=== PATIENT | male | born 1985 | race Caucasian/White ===

== ENCOUNTER → 2017-09-14 | Outpatient (CLI) | payer MEDICARE, OTHER ==
--- NOTE | 2017-09-15 04:45 | MR ---
EXAMINATION TYPE: MR brain wo con DATE OF EXAM: 09/14/2017 COMPARISON: NONE HISTORY: Headaches, Mental status changes Standard multiplanar, multisequence MRI departmental protocol Multiplanar, multisequence images of the brain were acquired. Diffusion weighted imaging was performe d. FINDINGS: The ventricles and sulci appear normal. There is no mass effect nor midline shift. There is no sign of intracranial hemorrhage. There is no evidence of cerebral edema. Corpus callosum appears normal. Brainstem appears normal. Sella turcica appears normal. There is no evidence of orbital mass. IMPRESSION: Normal MR scan of the brain.
== END | disposition home or self-care (01) ==
LOC: RADMRIMAIN 19:09
PROVIDERS: ATTEND Internal Medicine
DX: R51 Headache (principal); R41.82 Altered mental status, unspecified
CPT/HCPCS: 70551

== ENCOUNTER 2018-02-21 14:32 | Inpatient (IN) | payer MEDICARE, MEDICAID ==
--- NOTE | 2018-02-21 15:29 | ED ---
General Adult HPI - General Chief complaint: Psychiatric Symptoms Stated complaint: Mental health, mouse breeder picked up Time Seen by Provider: 02/21/18 14:56 Source: patient, RN notes reviewed Mode of arrival: ambulatory Limitations: no limitations - History of Present Illness Initial comments: Patient is a 32-year-old male presenting for psychiatric evaluation. Patient was seen by a dressage judge and police did pick him up and brought him here to emergency room for a psychiatric evaluation. Patient denies any suicidal, homicidal thoughts or plans. Denies any visual or auditory hallucinations. Patient denies any other physical complaints. Patient denies any recent fever, chills, shortness of breath, chest pain, back pain, abdominal pain, headaches or visual changes, or any other complaints. - Related Data Home Medications Medication Instructions Recorded Confirmed No Known Home Medications 02/21/18 02/21/18 Allergies Allergy/AdvReac Type Severity Reaction Status Date / Time No Known Allergies Allergy Verified 02/21/18 15:25 Review of Systems ROS Statement: Those systems with pertinent positive or pertinent negative responses have been documented in the HPI. ROS Other: All systems not noted in ROS Statement are negative. Past Medical History Past Medical History: No Reported History History of Any Multi-Drug Resistant Organisms: None Reported Past Surgical History: No Surgical Hx Reported Past Psychological History: No Psychological Hx Reported Smoking Status: Current every day smoker Past Alcohol Use History: Occasional Past Drug Use History: Cocaine, Opiates General Exam - General Exam Comments Initial Comments: General: The patient is awake and alert, in no distress, and does not appear acutely ill. Eye: Pupils are equal, round and reactive to light, extra-ocular movements are intact. No nystagmus. There is normal conjunctiva bilaterally. No signs of icterus. Ears, nose, mouth and throat: There are moist mucous membranes and no oral lesions. Neck: The neck is supple, there is no tenderness or JVD. Cardiovascular: There is a regular rate and rhythm. No murmur, rub or gallop is appreciated. Respiratory: Lungs are clear to auscultation, respirations are non-labored, breath sounds are equal. No wheezes, stridor, rales, or rhonchi. Musculoskeletal: Normal ROM, no tenderness. Strength 5/5. Sensation intact. Pulses equal bilaterally 2+. Neurological: A&O x 3. CN II-XII intact, There are no obvious motor or sensory deficits. Coordination appears grossly intact. Speech is normal. Skin: Skin is warm and dry and no rashes or lesions are noted. Psychiatric: Cooperative. Limitations: no limitations Course Vital Signs 02/21/18 14:53 Temperature 97.8 F Pulse Rate 100 Respiratory 18 Rate Blood Pressure 131/88 O2 Sat by Pulse 96 Oximetry Medical Decision Making - Medical Decision Making Patient evaluated here in the emergency room by mental health and they recommended that patient be admitted. Disposition Clinical Impression: Paranoia, Aggressive behavior Disposition: TRANSFER TO PSYCH HOSP/UNIT Condition: Stable Is patient prescribed a controlled substance at d/c from ED?: No
[2018-02-21 17:37] LABS: Amphetamine Screen,Urine Not Detected (NotDetected); Barbiturate Screen,Urine Not Detected (NotDetected); Benzodiazepines Screen,Urine Not Detected (NotDetected); Cocaine Screen,Urine Not Detected (NotDetected); Methadone Screen, Urine Not Detected (NotDetected); Opiate Screen,Urine Not Detected (NotDetected); Oxycodone Screen, Urine Not Detected (NotDetected); Phencyclidine Screen,Urine Not Detected (NotDetected); Tricyclic Antidepressant,Urine Not Detected (NotDetected); Urn Cannabinoid Scrn Not Detected (NotDetected)
[2018-02-21] MEDS ORDERED: ACETAMINOPHEN TAB 325 MG TAB PO PRN (17:49)
[2018-02-21] MEDS ORDERED: MAG HYDROX/AL HYDROX/SIMETH 30 ML CUP PO PRN (17:49)
[2018-02-21] MEDS ORDERED: MAGNESIUM HYDROXIDE 2,400 MG/10 ML CUP PO PRN (17:49)
[2018-02-21] MEDS ORDERED: ZIPRASIDONE 20 MG VIAL IM PRN (17:49)
[2018-02-21] MEDS ORDERED: LORazepam 2 MG/ML INJ IM PRN (17:54)
[2018-02-21] MEDS: NICOTINE 14MG/24HR PATCH TRANSDERM SCH (18:00)
--- NOTE | 2018-02-21 22:56 | P.MDCNMH ---
History of Present Illness H&P Date: 02/21/18 Chief Complaint: psych evaluation 32 year old male with no significant past medical history patient was brought to the emergency room after being petitioned by secretary of police for psych evaluation patient is voicing some paranoid thoughts regarding his family and the secretary of police. but denies any suicidal or homicidal evaluation , denies any auditory or visual hallucination. he currently denies any medical concerns , denies SOB, chest pain, headache, fever , chills, coughing , or focal neurological deficits Review of Systems Pertinent positives as noted in HPI. All other systems were reviewed and are negative Past Medical History Past Medical History: No Reported History History of Any Multi-Drug Resistant Organisms: None Reported Past Surgical History: No Surgical Hx Reported Past Psychological History: No Psychological Hx Reported Smoking Status: Current every day smoker Past Alcohol Use History: Occasional Past Drug Use History: Cocaine, Opiates Medications and Allergies Home Medications Medication Instructions Recorded Confirmed Type No Known Home Medications 02/21/18 02/21/18 History Allergies Allergy/AdvReac Type Severity Reaction Status Date / Time No Known Allergies Allergy Verified 02/21/18 15:25 Physical Exam Vitals: Vital Signs Temp Pulse Pulse Resp BP BP Pulse Ox 02/21/18 18:25 98.9 F 102 H 16 141/76 02/21/18 14:53 97.8 F 100 18 131/88 96 Intake and Output 02/21/18 02/21/18 02/21/18 06:59 14:59 22:59 Other: Weight 81.647 kg 82.645 kg Constitutional: No acute distress, conversant, pleasant Eyes: Anicteric sclerae, moist conjunctiva, no lid-lag Pupils equal round reactive to light ENMT: NC/AT Oropharynx clear, no erythema, exudates Neck: Supple, FROM, no masses, or JVD No carotid bruits No thyromegaly Lungs: Clear to auscultation Clear to percussion Normal respiratory effort, no accessory muscle use Cardiovascular: Heart regular in rate and rhythm, No murmurs, gallops, or rubs No peripheral edema Abdominal: Soft Nontender, no guarding, rebound or rigidity Abdomen moving with respiration Normoactive bowel sounds No hepatomegaly, No splenomegaly No palpable mass No abdominal wall hernia noted Skin: Normal temperature, tone, texture, turgor No induration No subcutaneous nodules No rash, lesions No ulcers Extremities: No digital cyanosis No clubbing Pedal pulses intact and symmetrical Radial pulses intact and symmetrical No calf tenderness Psychiatric: Alert and oriented to person, place and time Pressured speech, paranoid thoughts poor judgment Neuro Muscles Strength 5/5 in all 4 extremities Sensation to light touch grossly present throughout Cranial nerves II-XII grossly intact No focal sensory deficits Lymphatics: no palpable cervical or supraclavicular , or inguinal lymph nodes Cranial Nerve Examination - Cranial Nerves Cranial Nerve II- Optic: Intact Cranial Nerve III- Oculomotor: Intact Cranial Nerve IV- Trochlear: Intact Cranial Nerve V- Trigeminal: Intact Cranial Nerve - Abducens: Intact Cranial Nerve VII- Facial: Intact Cranial Nerve VIII- Auditory: Intact Cranial Nerve IX- Glossopharyngeal: Intact Cranial Nerve X- Vagus: Intact Cranial Nerve XI- Accessory: Intact Cranial Nerve XII- Hypoglossal: Intact Assessment and Plan Assessment: 32 year old male with no significant past medical history , admitted for psych evaluation , medicine consulted for medical evaluation . patient has no medical complaints at this time Plan: Paranoid ideation Psych evaluation Tobacco smoking Counseled to quit smoking Nicotine replacement therapy Patient is ambulatory low risk for DVT Urine drug screen negative Thank you for allowing us to participate in the care of this patient. We will follow peripherally. Do not hesitate to contact us with questions. Someone can be reached from the [facility] hospitalist group at all hours of the day at [phone].
[2018-02-22] MEDS: NICOTINE 14MG/24HR PATCH TRANSDERM SCH (08:05)
[2018-02-22 11:24] LABS: Basophils % (A) 0 %; Eosinophils % (A) 0 %; HCT 46.3 % (39.0-53.0); HGB 15.1 gm/dL (13.0-17.5); Lymphocytes # (A) 2.1 k/uL (1.0-4.8); Lymphocytes % (A) 24 %; MCH 28.1 pg (25.0-35.0); MCHC 32.7 g/dL (31.0-37.0); MCV 85.9 fL (80.0-100.0); Mean Platelet Volume 6.4; Monocytes # (A) 0.6 k/uL (0-1.0); Monocytes % (A) 7 %; Neutrophils # (A) 5.8 k/uL (1.3-7.7); Neutrophils % (A) 65 %; Platelet Count 349 k/uL (150-450); RBC 5.39 m/uL (4.30-5.90); RDW 13.2 % (11.5-15.5); WBC 8.8 k/uL (3.8-10.6)
--- NOTE | 2018-02-22 13:38 | P.HP ---
Psychiatric H&P - . H&P Date: 02/22/18 History & Physical: Allergies Allergy/AdvReac Type Severity Reaction Status Date / Time No Known Allergies Allergy Verified 02/21/18 15:25 Vital Signs Temp 97.9 F 02/22/18 07:02 Pulse 89 02/22/18 07:02 Resp 18 02/22/18 07:02 BP 128/80 02/22/18 07:02 Pulse Ox 96 02/21/18 14:53 Intake & Output 02/21/18 02/22/18 02/22/18 18:59 06:59 18:59 Weight 82.645 kg Laboratory Last Values Urine Opiates Screen Not Detected (NotDetected) 02/21/18 17:10 Ur Oxycodone Screen Not Detected (NotDetected) 02/21/18 17:10 Urine Methadone Screen Not Detected (NotDetected) 02/21/18 17:10 Ur Propoxyphene Screen Not Detected (NotDetected) 02/21/18 17:10 Ur Barbiturates Screen Not Detected (NotDetected) 02/21/18 17:10 U Tricyclic Antidepress Not Detected (NotDetected) 02/21/18 17:10 Ur Phencyclidine Scrn Not Detected (NotDetected) 02/21/18 17:10 Ur Amphetamines Screen Not Detected (NotDetected) 02/21/18 17:10 U Methamphetamines Scrn Not Detected (NotDetected) 02/21/18 17:10 U Benzodiazepines Scrn Not Detected (NotDetected) 02/21/18 17:10 Urine Cocaine Screen Not Detected (NotDetected) 02/21/18 17:10 U Marijuana (THC) Screen Not Detected (NotDetected) 02/21/18 17:10 Assessment and Plan Assessment: HPI: Patient is a 32-year-old male presenting for psychiatric admission.. Patient was seen by a mattress filler and police did pick him up and brought him here to emergency room for a psychiatric evaluation. Patient denies any suicidal, homicidal thoughts or plans. Denies any visual or auditory hallucinations. Patient denies any other physical complaints. Patient denies any recent fever, chills, shortness of breath, chest pain, back pain, abdominal pain, headaches or visual changes, or any other complaints. - Related Data Home Medications Medication Instructions Recorded Confirmed No Known Home Medications 02/21/18 02/21/18 Allergies Allergy/AdvReac Type Severity Reaction Status Date / Time No Known Allergies Allergy Verified 02/21/18 15:25 Past Medical History Past Medical History: No Reported History History of Any Multi-Drug Resistant Organisms: None Reported Past Surgical History: No Surgical Hx Reported Past Psychological History: No Psychological Hx Reported Smoking Status: Current every day smoker Past Alcohol Use History: Occasional Past Drug Use History: Cocaine, Opiates Musculoskeletal Examination - Abnormal/Involuntary Movements: [none] Strength: [greater than antigravity (greater than/equal to 3/5) in all extremities:] Muscle Tone: [no impairment Gait: [grossly normal Station: [grossly normal Mental Status Examination - this 32-year-old single male was brought in by police because of wanting to buy a gun and making threats to his numerous people and multiple complaints. He was told that he cannot return to where he is doing his GED due to no trespassing because he has been belligerent angry irritable and agitated towards people. He bought a high school diploma online and was confronted when he tried to go to college that he never finishes his high school diploma. Worries taking his GED he has been disruptive and argumentative. General Appearance: [bizarre, appears stated age Speech/Language: [spontaneous, rapid, rambled, expressive, loud, does confabulate and has poor understanding of life and how to succeed] Attitude/Behavior: [guarded, irritable Mood: [euphoric, anxious, irritable, angry, fearful] Affect: [labile Orientation: [time, person, place situation] Thought Content: [ delusions of grandeur Risk Factors: [No suicidal (ideations, plan), he has Homicidal (ideations, plan) , other] Perception: [wnl Thought Processes: [ concrete, circumstantial, tangential Concentration/Attention Span: [impaired] [Per observation and interview with the patient] Recent Memory: [impaired] Remote Memory: [wnl] [past events, as related history] Intelligence: [below average] [based on history, based on vocabulary, syntax, grammar, and content] Judgement: [ poor] [per patient's behavior/history of present illness] Insight: [poor] [understanding severity of illness/history of present illness] Admitting Diagnosis: [Bipolar affective disorder acute psychosis] Patient Strengths - Steady employment/financial stability: [x] Housing stability: [x] Patient Limitations: [medication, non-compliance, pathological/unsupported environment, intellectual impairment, legal issues, lack of social supports Initial Plan of Care: [Hamilton is to be admitted involuntary after a petition and first clinical CERT were accomplished and in the chart. I filled out this second clinical CERT today due to his bizarre and delusional thinking with grandiose thoughts and loose associations. He'll be placed on 15 minute watch and usual protocol for the unit. He has when necessary's available to him but will not medicate until he goes to court. He'll be evaluated by medicine psychiatry nursing social work and recreational therapy and disciplinary team Sunday through Sunday for treatment and disposition. There may be legal ramifications well and charges from a college and the [employer] but will further evaluate.] Estimated Length of Stay: [5-7 days] Initial Discharge Plan: [home, [facility], referred to therapist, Prognosis: [ fair] Justification for Inpatient Hospitalization - [Hallucinations, delusions, agitation, anxiety, depression resulting in significant loss of functioning.] [Dangerous to self, others, or property with need for controlled environment.] [Emotional or behavioral conditions and complications requiring 24 hour medical and nursing care.] [Need for special drug therapy, or other therapeutic program requiring continuous hospitalization.] [Failure of social or occupational functioning.] [Inability to meet basic life and health needs.] [Legally mandated admission.] (1) Bipolar 1 disorder Current Visit: Yes Status: Acute Priority: High Code(s): F31.9 - BIPOLAR DISORDER, UNSPECIFIED SNOMED Code(s): 220468010 (2) Delusions Current Visit: Yes Status: Acute Priority: High Code(s): F22 - DELUSIONAL DISORDERS SNOMED Code(s): 6522692 (3) Psychosis Current Visit: Yes Status: Acute Priority: High Code(s): F29 - UNSP PSYCHOSIS NOT DUE TO A SUBSTANCE OR KNOWN PHYSIOL COND SNOMED Code(s): 57983500 Plan: Probate court next week and no psychiatric medications at this time since she is unwilling to do about and will have to await court hearing. Time with Patient: Greater than 30
[2018-02-22 20:49] LABS: Hemoglobin A1C 5.1 % (4.0-6.0)
[2018-02-23] MEDS: NICOTINE 14MG/24HR PATCH TRANSDERM SCH (09:02)
[2018-02-23] MEDS: LORazepam 1 MG TAB PO PRN (18:29)
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
[2018-02-24] MEDS: NICOTINE 14MG/24HR PATCH TRANSDERM SCH (07:46)
[2018-02-24 09:31] LABS: ALT 32 U/L (21-72); AST 21 U/L (17-59); Albumin 4.3 g/dL (3.5-5.0); Alkaline Phosphatase 72 U/L (38-126); Anion Gap 10 mmol/L; Bilirubin, Delta 0.2 mg/dL (0.0-0.2); Bilirubin,Unconjugated 0.7 mg/dL (0.0-1.1); Blood Urea Nitrogen 14 mg/dL (9-20); Calcium 9.7 mg/dL (8.4-10.2); Carbon Dioxide 30 mmol/L (22-30); Chloride 102 mmol/L (98-107); Cholesterol 150 mg/dL (<200); Glucose 103 mg/dL (74-99); HDL Cholesterol 61 mg/dL (40-60); LDL Cholesterol,Calculated 69 mg/dL (0-99); Potassium 4.1 mmol/L (3.5-5.1); Sodium 142 mmol/L (137-145); Total Bilirubin 0.9 mg/dL (0.2-1.3); Total Protein 7.1 g/dL (6.3-8.2); Triglycerides 100 mg/dL (<150)
--- NOTE | 2018-02-24 17:03 | P.PN ---
Progress Note - Text Progress Note Date: 02/24/18 IDENTIFICATION DATA: 32-year-old male petitioned by police as patient was experiencing paranoid ideations. Clinical CERT was completed due to his delusional and illogical thought process. Awaiting results of probate court hearing. There may be legal ramifications well and charges from a college and the [employer] store which will be further evaluated. Intellectual impairment, lack of social support. INTERVAL HISTORY: He continues to report he was brought here for no reason or no fault. He is anxiously waiting to talk to his business lawyer tomorrow. He says he is doing very well. He claims he makes sure he gets good exercise and eat well before going to bed. He claims to have slept very well yesterday. He is seen pacing [address]. He denies current symptoms of depression, jeana or psychosis. MENTAL STATUS EXAMINATION: Appeared stated age. dressed casually.. Fair grooming and hygiene. No abnormal movements noted. mood is reported as well, affect appropriate. speech and thought process were pressured and tangential. denies current hallucinatios. Denies paranoia. is alert and oriented x 4. denies current suicidal or homicidal ideations. insight and judgement are improving. ASSESSMENT AND PLAN: Awaiting probate court hearing. Currently being monitored on PRN medications.
[2018-02-24 19:14] LABS: Appearance,Urine Clear (Clear); Bilirubin,Urine Negative (Negative); Blood,Urine Negative (Negative); Color,Urine Light Yellow; Glucose,Urine (UA) Negative (Negative); Ketones,Urine Negative (Negative); Leukocyte Esterase,Urine Negative (Negative); Nitrite,Urine Negative (Negative); Protein,Urine Negative (Negative); Specific Gravity,Urine 1.007 (1.001-1.035); Urobilinogen,Urine <2.0 mg/dL (<2.0)
[2018-02-25] MEDS: NICOTINE 14MG/24HR PATCH TRANSDERM SCH (08:03)
--- NOTE | 2018-02-25 12:25 | P.PN ---
Subjective Progress Note Date: 02/25/18 Principal diagnosis: Bipolarmania and psychosis He continues to report he was brought here for no reason or no fault. He is anxiously waiting to talk to his director of corporate sales tomorrow. He says he is not doing very well. He claims he makes sure he gets good exercise and eat well before going to bed. He claims to have slept very well yesterday. He is seen pacing [address]. He has symptoms of jeana or psychosis. Objective - Vital Signs Vital signs: Vital Signs Temp 97.6 F 02/25/18 04:36 Pulse 66 02/25/18 04:36 Resp 16 02/25/18 04:36 BP 130/88 02/25/18 04:36 Pulse Ox 95 02/24/18 06:25 Intake & Output 02/24/18 02/25/18 02/25/18 18:59 06:59 18:59 Weight 83.5 kg - Labs CBC & Chem 7: 02/22/18 10:49 02/24/18 08:58 Assessment and Plan Assessment: HPI: Patient is a 32-year-old male presenting for psychiatric admission.. Patient was seen by a metal pickling equipment operator and police did pick him up and brought him here to emergency room for a psychiatric evaluation. Patient denies any suicidal, homicidal thoughts or plans. Denies any visual or auditory hallucinations. Patient denies any other physical complaints. Patient denies any recent fever, chills, shortness of breath, chest pain, back pain, abdominal pain, headaches or visual changes, or any other complaints. - Related Data Home Medications Medication Instructions Recorded Confirmed No Known Home Medications 02/21/18 02/21/18 Allergies Allergy/AdvReac Type Severity Reaction Status Date / Time No Known Allergies Allergy Verified 02/21/18 15:25 Past Medical History Past Medical History: No Reported History History of Any Multi-Drug Resistant Organisms: None Reported Past Surgical History: No Surgical Hx Reported Past Psychological History: No Psychological Hx Reported Smoking Status: Current every day smoker Past Alcohol Use History: Occasional Past Drug Use History: Cocaine, Opiates Musculoskeletal Examination - Abnormal/Involuntary Movements: [none] Strength: [greater than antigravity (greater than/equal to 3/5) in all extremities:] Muscle Tone: [no impairment Gait: [grossly normal Station: [grossly normal Mental Status Examination - this 32-year-old single male was brought in by police because of wanting to buy a gun and making threats to his numerous people and multiple complaints. He was told that he cannot return to where he is doing his GED due to no trespassing because he has been belligerent angry irritable and agitated towards people. He bought a high school diploma online and was confronted when he tried to go to college that he never finishes his high school diploma. Worries taking his GED he has been disruptive and argumentative. General Appearance: [bizarre, appears stated age Speech/Language: [spontaneous, rapid, rambled, expressive, loud, does confabulate and has poor understanding of life and how to succeed] Attitude/Behavior: [guarded, irritable Mood: [euphoric, anxious, irritable, angry, fearful] Affect: [labile Orientation: [time, person, place situation] Thought Content: [ delusions of grandeur Risk Factors: [No suicidal (ideations, plan), he has Homicidal (ideations, plan) , other] Perception: [wnl Thought Processes: [ concrete, circumstantial, tangential Concentration/Attention Span: [impaired] [Per observation and interview with the patient] Recent Memory: [impaired] Remote Memory: [wnl] [past events, as related history] Intelligence: [below average] [based on history, based on vocabulary, syntax, grammar, and content] Judgement: [ poor] [per patient's behavior/history of present illness] Insight: [poor] [understanding severity of illness/history of present illness] Admitting Diagnosis: [Bipolar affective disorder acute psychosis] Patient Strengths - Steady employment/financial stability: [x] Housing stability: [x] Patient Limitations: [medication, non-compliance, pathological/unsupported environment, intellectual impairment, legal issues, lack of social supports Initial Plan of Care: [Hamilton is to be admitted involuntary after a petition and first clinical CERT were accomplished and in the chart. I filled out this second clinical CERT today due to his bizarre and delusional thinking with grandiose thoughts and loose associations. He'll be placed on 15 minute watch and usual protocol for the unit. He has when necessary's available to him but will not medicate until he goes to court. He'll be evaluated by medicine psychiatry nursing social work and recreational therapy and disciplinary team Sunday through Sunday for treatment and disposition. There may be legal ramifications well and charges from a college and the [employer] but will further evaluate. If he agrees to an deferral I discussed with him in detail that he still court ordered and he has to take the medications. He thought I could just writing scripts and he could leave. I told him that was not an option he has to stay here until he is told he can be discharged. He appeared to be okay with that but judging from previous episodes of him, he will need the probate court order for continued treatment for her as I think he is at risk if he is not on medications.] Estimated Length of Stay: [5-7 days] Initial Discharge Plan: [home, [facility], referred to therapist, Prognosis: [ fair] Justification for Inpatient Hospitalization - [Hallucinations, delusions, agitation, anxiety, depression resulting in significant loss of functioning.] [Dangerous to self, others, or property with need for controlled environment.] [Emotional or behavioral conditions and complications requiring 24 hour medical and nursing care.] [Need for special drug therapy, or other therapeutic program requiring continuous hospitalization.] [Failure of social or occupational functioning.] [Inability to meet basic life and health needs.] [Legally mandated admission.] (1) Bipolar 1 disorder Current Visit: Yes Status: Acute Priority: High Code(s): F31.9 - BIPOLAR DISORDER, UNSPECIFIED SNOMED Code(s): 718909469 (2) Delusions Current Visit: Yes Status: Acute Priority: High Code(s): F22 - DELUSIONAL DISORDERS SNOMED Code(s): 9200192 (3) Psychosis Current Visit: Yes Status: Acute Priority: High Code(s): F29 - UNSP PSYCHOSIS NOT DUE TO A SUBSTANCE OR KNOWN PHYSIOL COND SNOMED Code(s): 74565493 Plan: Probate court this week and no psychiatric medications at this time since she is unwilling to do about and will have to await court hearing. He did consider medications today but I will wait until his deferral. Time with Patient: Less than 30
[2018-02-25] MEDS ORDERED: PALIPERIDONE 3 MG TAB.ER.24 PO SCH (21:00)
[2018-02-25] MEDS ORDERED: lamoTRIgine 25 MG TAB PO SCH (21:00)
[2018-02-26] MEDS: NICOTINE 14MG/24HR PATCH TRANSDERM SCH (13:45)
--- NOTE | 2018-02-26 15:09 | P.PN ---
Subjective Progress Note Date: 02/26/18 Principal diagnosis: Bipolarmania and psychosis He continues to report he was brought here for no reason or no fault. He is anxiously waiting to talk to his media professional tomorrow. He says he is not doing very well. He claims he makes sure he gets good exercise and eat well before going to bed. He claims to have slept very well yesterday. He is seen pacing [address]. He has symptoms of jeana or psychosis. Objective - Vital Signs Vital signs: Vital Signs Temp 98.0 F 02/26/18 04:50 Pulse 83 02/26/18 04:50 Resp 16 02/26/18 04:50 BP 137/86 02/26/18 04:50 Pulse Ox 95 02/24/18 06:25 - Labs CBC & Chem 7: 02/22/18 10:49 02/24/18 08:58 Assessment and Plan Assessment: HPI: Patient is a 32-year-old male presenting for psychiatric admission.. Patient was seen by a instructional coach and police did pick him up and brought him here to emergency room for a psychiatric evaluation. Patient denies any suicidal, homicidal thoughts or plans. Denies any visual or auditory hallucinations. Patient denies any other physical complaints. Patient denies any recent fever, chills, shortness of breath, chest pain, back pain, abdominal pain, headaches or visual changes, or any other complaints. - Related Data Home Medications Medication Instructions Recorded Confirmed No Known Home Medications 02/21/18 02/21/18 Allergies Allergy/AdvReac Type Severity Reaction Status Date / Time No Known Allergies Allergy Verified 02/21/18 15:25 Past Medical History Past Medical History: No Reported History History of Any Multi-Drug Resistant Organisms: None Reported Past Surgical History: No Surgical Hx Reported Past Psychological History: No Psychological Hx Reported Smoking Status: Current every day smoker Past Alcohol Use History: Occasional Past Drug Use History: Cocaine, Opiates Musculoskeletal Examination - Abnormal/Involuntary Movements: [none] Strength: [greater than antigravity (greater than/equal to 3/5) in all extremities:] Muscle Tone: [no impairment Gait: [grossly normal Station: [grossly normal Mental Status Examination - this 32-year-old single male was brought in by police because of wanting to buy a gun and making threats to his numerous people and multiple complaints. He was told that he cannot return to where he is doing his GED due to no trespassing because he has been belligerent angry irritable and agitated towards people. He bought a high school diploma online and was confronted when he tried to go to college that he never finishes his high school diploma. Worries taking his GED he has been disruptive and argumentative. General Appearance: [bizarre, appears stated age Speech/Language: [spontaneous, rapid, rambled, expressive, loud, does confabulate and has poor understanding of life and how to succeed] Attitude/Behavior: [guarded, irritable Mood: [euphoric, anxious, irritable, angry, fearful] Affect: [labile Orientation: [time, person, place situation] Thought Content: [ delusions of grandeur Risk Factors: [No suicidal (ideations, plan), he has Homicidal (ideations, plan) , other] Perception: [wnl Thought Processes: [ concrete, circumstantial, tangential Concentration/Attention Span: [impaired] [Per observation and interview with the patient] Recent Memory: [impaired] Remote Memory: [wnl] [past events, as related history] Intelligence: [below average] [based on history, based on vocabulary, syntax, grammar, and content] Judgement: [ poor] [per patient's behavior/history of present illness] Insight: [poor] [understanding severity of illness/history of present illness] Admitting Diagnosis: [Bipolar affective disorder acute psychosis] Patient Strengths - Steady employment/financial stability: [x] Housing stability: [x] Patient Limitations: [medication, non-compliance, pathological/unsupported environment, intellectual impairment, legal issues, lack of social supports Initial Plan of Care: [Hamilton is to be admitted involuntary after a petition and first clinical CERT were accomplished and in the chart. I filled out this second clinical CERT today due to his bizarre and delusional thinking with grandiose thoughts and loose associations. He'll be placed on 15 minute watch and usual protocol for the unit. He has when necessary's available to him but will not medicate until he goes to court. He'll be evaluated by medicine psychiatry nursing social work and recreational therapy and disciplinary team Sunday through Sunday for treatment and disposition. There may be legal ramifications well and charges from a college and the [employer] but will further evaluate. If he agrees to an deferral I discussed with him in detail that he still court ordered and he has to take the medications. He thought I could just writing scripts and he could leave. I told him that was not an option he has to stay here until he is told he can be discharged. He appeared to be okay with that but judging from previous episodes of him, he will need the probate court order for continued treatment for her as I think he is at risk if he is not on medications.] Estimated Length of Stay: [4 days] Initial Discharge Plan: [[place], [facility], referred to therapist, Prognosis: [ fair] Justification for Inpatient Hospitalization - [Hallucinations, delusions, agitation, anxiety, depression resulting in significant loss of functioning.] [Dangerous to self, others, or property with need for controlled environment.] [Emotional or behavioral conditions and complications requiring 24 hour medical and nursing care.] [Need for special drug therapy, or other therapeutic program requiring continuous hospitalization.] [Failure of social or occupational functioning.] [Inability to meet basic life and health needs.] [Legally mandated admission.] (1) Bipolar 1 disorder Current Visit: Yes Status: Acute Priority: High Code(s): F31.9 - BIPOLAR DISORDER, UNSPECIFIED SNOMED Code(s): 752764593 (2) Delusions Current Visit: Yes Status: Acute Priority: High Code(s): F22 - DELUSIONAL DISORDERS SNOMED Code(s): 2604486 (3) Psychosis Current Visit: Yes Status: Acute Priority: High Code(s): F29 - UNSP PSYCHOSIS NOT DUE TO A SUBSTANCE OR KNOWN PHYSIOL COND SNOMED Code(s): 02015599 Plan: Probate court this week and no psychiatric medications at this time since he is unwilling to do about and will have to await court hearing. He did consider medications today but I will wait until his deferral.Had deferred and now taking lamictal 50 mg po qhs; invega 6 mg po qhs Time with Patient: Less than 30
[2018-02-26] MEDS ORDERED: PALIPERIDONE 6 MG TAB.ER.24 PO SCH (21:00)
[2018-02-26] MEDS ORDERED: lamoTRIgine 25 MG TAB PO SCH (21:00)
[2018-02-27] MEDS: NICOTINE 14MG/24HR PATCH TRANSDERM SCH (08:22)
--- NOTE | 2018-02-27 12:04 | P.PN ---
Subjective Progress Note Date: 02/27/18 Principal diagnosis: Bipolarmania and psychosis He continues to report he was brought here for no reason or no fault. He is anxiously waiting to talk to his stave planer tender tomorrow. He says he is not doing very well. He claims he makes sure he gets good exercise and eat well before going to bed. He claims to have slept very well yesterday. He is seen pacing [address]. He has symptoms of jeana or psychosis. He presents today still manic pressured speech and wants to control his own medicines. Had to be redirected 3 times during session Objective - Vital Signs Vital signs: Vital Signs Temp 98.1 F 02/27/18 06:04 Pulse 113 H 02/27/18 06:04 Resp 16 02/27/18 06:04 BP 134/90 02/27/18 06:04 Pulse Ox 95 02/24/18 06:25 - Labs CBC & Chem 7: 02/22/18 10:49 02/24/18 08:58 Assessment and Plan Assessment: HPI: Patient is a 32-year-old male presenting for psychiatric admission.. Patient was seen by a paddock judge and police did pick him up and brought him here to emergency room for a psychiatric evaluation. Patient denies any suicidal, homicidal thoughts or plans. Denies any visual or auditory hallucinations. Patient denies any other physical complaints. Patient denies any recent fever, chills, shortness of breath, chest pain, back pain, abdominal pain, headaches or visual changes, or any other complaints. - Related Data Home Medications Medication Instructions Recorded Confirmed No Known Home Medications 02/21/18 02/21/18 Allergies Allergy/AdvReac Type Severity Reaction Status Date / Time No Known Allergies Allergy Verified 02/21/18 15:25 Past Medical History Past Medical History: No Reported History History of Any Multi-Drug Resistant Organisms: None Reported Past Surgical History: No Surgical Hx Reported Past Psychological History: No Psychological Hx Reported Smoking Status: Current every day smoker Past Alcohol Use History: Occasional Past Drug Use History: Cocaine, Opiates Musculoskeletal Examination - Abnormal/Involuntary Movements: [none] Strength: [greater than antigravity (greater than/equal to 3/5) in all extremities:] Muscle Tone: [no impairment Gait: [grossly normal Station: [grossly normal Mental Status Examination - this 32-year-old single male was brought in by police because of wanting to buy a gun and making threats to his numerous people and multiple complaints. He was told that he cannot return to where he is doing his GED due to no trespassing because he has been belligerent angry irritable and agitated towards people. He bought a high school diploma online and was confronted when he tried to go to college that he never finishes his high school diploma. Worries taking his GED he has been disruptive and argumentative. General Appearance: [bizarre, appears stated age Speech/Language: [spontaneous, rapid, rambled, expressive, loud, does confabulate and has poor understanding of life and how to succeed] Attitude/Behavior: [guarded, irritable Mood: [euphoric, anxious, irritable, angry, fearful] Affect: [labile Orientation: [time, person, place situation] Thought Content: [ delusions of grandeur Risk Factors: [No suicidal (ideations, plan), he has Homicidal (ideations, plan) , other] Perception: [wnl Thought Processes: [ concrete, circumstantial, tangential Concentration/Attention Span: [impaired] [Per observation and interview with the patient] Recent Memory: [impaired] Remote Memory: [wnl] [past events, as related history] Intelligence: [below average] [based on history, based on vocabulary, syntax, grammar, and content] Judgement: [ poor] [per patient's behavior/history of present illness] Insight: [poor] [understanding severity of illness/history of present illness] Admitting Diagnosis: [Bipolar affective disorder acute psychosis] Patient Strengths - Steady employment/financial stability: [x] Housing stability: [x] Patient Limitations: [medication, non-compliance, pathological/unsupported environment, intellectual impairment, legal issues, lack of social supports Initial Plan of Care: [Hamilton is to be admitted involuntary after a petition and first clinical CERT were accomplished and in the chart. I filled out this second clinical CERT today due to his bizarre and delusional thinking with grandiose thoughts and loose associations. He'll be placed on 15 minute watch and usual protocol for the unit. He'll be evaluated by medicine psychiatry nursing social work and recreational therapy and disciplinary team Sunday through Sunday for treatment and disposition. There may be legal ramifications well and charges from a college and the [employer] but will further evaluate. He has since deferred for treatment and was discovered that he was sent to February 2017 with same symptoms and was on Invega 234 mg IM If he agrees to an deferral I discussed with him in detail that he still court ordered and he has to take the medications. He thought I could just writing scripts and he could leave. I told him that was not an option he has to stay here until he is told he can be discharged. He appeared to be okay with that but judging from previous episodes of him, he will need the probate court order for continued treatment for her as I think he is at risk if he is not on medications.] Estimated Length of Stay: [4 days] Initial Discharge Plan: [[place], [facility], referred to therapist Prognosis: [ fair] Justification for Inpatient Hospitalization - [Hallucinations, delusions, agitation, anxiety, depression resulting in significant loss of functioning.] [Dangerous to self, others, or property with need for controlled environment.] [Emotional or behavioral conditions and complications requiring 24 hour medical and nursing care.] [Need for special drug therapy, or other therapeutic program requiring continuous hospitalization.] [Failure of social or occupational functioning.] [Inability to meet basic life and health needs.] [Legally mandated admission.] (1) Bipolar 1 disorder Current Visit: Yes Status: Acute Priority: High Code(s): F31.9 - BIPOLAR DISORDER, UNSPECIFIED SNOMED Code(s): 204770782 (2) Delusions Current Visit: Yes Status: Acute Priority: High Code(s): F22 - DELUSIONAL DISORDERS SNOMED Code(s): 7646919 (3) Psychosis Current Visit: Yes Status: Acute Priority: High Code(s): F29 - UNSP PSYCHOSIS NOT DUE TO A SUBSTANCE OR KNOWN PHYSIOL COND SNOMED Code(s): 01528500 Plan: He did consider medications today but he wants to manipulate 30 dose and I told him I'm not willing for him to be in charge of his medications. He did deferral with a court-appointed sweet dough mixer.Had deferred and now taking lamictal 75 mg po qhs; invega 9 mg po qhs Time with Patient: Less than 30
[2018-02-27] MEDS: PALIPERIDONE 3 MG TAB.ER.24 PO SCH (20:28)
[2018-02-27] MEDS ORDERED: lamoTRIgine 25 MG TAB PO SCH (21:00)
[2018-02-28] MEDS: LORazepam 1 MG TAB PO PRN ×3 (03:53→17:51)
[2018-02-28] MEDS: NICOTINE 14MG/24HR PATCH TRANSDERM SCH (08:14)
--- NOTE | 2018-02-28 13:52 | P.PN ---
Subjective Progress Note Date: 02/28/18 Principal diagnosis: Bipolarmania and psychosis He continues to report he was brought here for no reason or no fault. He says he is not doing very well. He claims he makes sure he gets good exercise and eat well before going to bed. He claims to have slept very well yesterday. He is seen pacing [place]. He has symptoms of jeana or psychosis. He presents today still manic pressured speech and wants to control his own medicines. Had to be redirected 2 times during session Objective - Vital Signs Vital signs: Vital Signs Temp 98.1 F 02/27/18 06:04 Pulse 103 H 02/28/18 03:54 Resp 16 02/27/18 06:04 BP 133/87 02/28/18 03:54 Pulse Ox 95 02/24/18 06:25 - Labs CBC & Chem 7: 02/22/18 10:49 02/24/18 08:58 Assessment and Plan Assessment: HPI: Patient is a 32-year-old male presenting for psychiatric admission.. Patient was seen by a port traffic manager and police did pick him up and brought him here to emergency room for a psychiatric evaluation. Patient denies any suicidal, homicidal thoughts or plans. Denies any visual or auditory hallucinations. Patient denies any other physical complaints. Patient denies any recent fever, chills, shortness of breath, chest pain, back pain, abdominal pain, headaches or visual changes, or any other complaints. - Related Data Home Medications Medication Instructions Recorded Confirmed No Known Home Medications 02/21/18 02/21/18 Allergies Allergy/AdvReac Type Severity Reaction Status Date / Time No Known Allergies Allergy Verified 02/21/18 15:25 Past Medical History Past Medical History: No Reported History History of Any Multi-Drug Resistant Organisms: None Reported Past Surgical History: No Surgical Hx Reported Past Psychological History: No Psychological Hx Reported Smoking Status: Current every day smoker Past Alcohol Use History: Occasional Past Drug Use History: Cocaine, Opiates Musculoskeletal Examination - Abnormal/Involuntary Movements: [none] Strength: [greater than antigravity (greater than/equal to 3/5) in all extremities:] Muscle Tone: [no impairment Gait: [grossly normal Station: [grossly normal Mental Status Examination - this 32-year-old single male was brought in by police because of wanting to buy a gun and making threats to his numerous people and multiple complaints. He was told that he cannot return to where he is doing his GED due to no trespassing because he has been belligerent angry irritable and agitated towards people. He bought a high school diploma online and was confronted when he tried to go to college that he never finishes his high school diploma. Worries taking his GED he has been disruptive and argumentative. General Appearance: [bizarre, appears stated age Speech/Language: [spontaneous, rapid, rambled, expressive, loud, does confabulate and has poor understanding of life and how to succeed] Attitude/Behavior: [guarded, irritable Mood: [euphoric, anxious, irritable, angry, fearful] Affect: [labile Orientation: [time, person, place situation] Thought Content: [ delusions of grandeur Risk Factors: [No suicidal (ideations, plan), he has Homicidal (ideations, plan) , other] Perception: [wnl Thought Processes: [ concrete, circumstantial, tangential Concentration/Attention Span: [impaired] [Per observation and interview with the patient] Recent Memory: [impaired] Remote Memory: [wnl] [past events, as related history] Intelligence: [below average] [based on history, based on vocabulary, syntax, grammar, and content] Judgement: [ poor] [per patient's behavior/history of present illness] Insight: [poor] [understanding severity of illness/history of present illness] Admitting Diagnosis: [Bipolar affective disorder acute psychosis] Patient Strengths - Steady employment/financial stability: [x] Housing stability: [x] Patient Limitations: [medication, non-compliance, pathological/unsupported environment, intellectual impairment, legal issues, lack of social supports Initial Plan of Care: [Hamilton is to be admitted involuntary after a petition and first clinical CERT were accomplished and in the chart. I filled out this second clinical CERT today due to his bizarre and delusional thinking with grandiose thoughts and loose associations. He'll be placed on 15 minute watch and usual protocol for the unit. He'll be evaluated by medicine psychiatry nursing social work and recreational therapy and disciplinary team Sunday through Sunday for treatment and disposition. There may be legal ramifications well and charges from a college and the [employer] but will further evaluate. He has since deferred for treatment and was discovered that he was sent to [facility] February 2017 with same symptoms and was on Invega 234 mg IM If he agrees to an deferral I discussed with him in detail that he still court ordered and he has to take the medications. He thought I could just writing scripts and he could leave. I told him that was not an option he has to stay here until he is told he can be discharged. He appeared to be okay with that but judging from previous episodes of him, he will need the probate court order for continued treatment for her as I think he is at risk if he is not on medications.] Estimated Length of Stay: [3 days] Initial Discharge Plan: [[place], [facility] [address], referred to therapist Prognosis: [ fair] Justification for Inpatient Hospitalization - [Hallucinations, delusions, agitation, anxiety, depression resulting in significant loss of functioning.] [Dangerous to self, others, or property with need for controlled environment.] [Emotional or behavioral conditions and complications requiring 24 hour medical and nursing care.] [Need for special drug therapy, or other therapeutic program requiring continuous hospitalization.] [Failure of social or occupational functioning.] [Inability to meet basic life and health needs.] [Legally mandated admission.] (1) Bipolar 1 disorder Current Visit: Yes Status: Acute Priority: High Code(s): F31.9 - BIPOLAR DISORDER, UNSPECIFIED SNOMED Code(s): 125268436 (2) Delusions Current Visit: Yes Status: Acute Priority: High Code(s): F22 - DELUSIONAL DISORDERS SNOMED Code(s): 9388480 (3) Psychosis Current Visit: Yes Status: Acute Priority: High Code(s): F29 - UNSP PSYCHOSIS NOT DUE TO A SUBSTANCE OR KNOWN PHYSIOL COND SNOMED Code(s): 40476843 Plan: He did consider medications today but he wants to manipulate 30 dose and I told him I'm not willing for him to be in charge of his medications. He did deferral with a court-appointed assistant prosecuting attorney.Had deferred and now taking lamictal 100 mg po qhs; invega 9 mg po qhs Sunday plan to use invega 234 mg IM. Time with Patient: Less than 30
[2018-02-28] MEDS: PALIPERIDONE 3 MG TAB.ER.24 PO SCH (19:53)
[2018-02-28] MEDS ORDERED: lamoTRIgine 100 MG TAB PO SCH (21:00)
[2018-03-01] MEDS: NICOTINE 14MG/24HR PATCH TRANSDERM SCH (08:01)
[2018-03-01] MEDS: LORazepam 1 MG TAB PO PRN ×2 (08:03→16:09)
--- NOTE | 2018-03-01 12:32 | P.PN ---
Subjective Progress Note Date: 03/01/18 Principal diagnosis: Bipolarmania and psychosis He continues to report he was brought here for no reason or no fault but now accepts that he needs medication. He says he is doing well. He claims he makes sure he gets good exercise and eat well before going to bed. He claims to have slept very well yesterday. He has symptoms of jeana or psychosis. He presents today still manic pressured speech and today does not want to control his own medicines. Had to be redirected 0 times during session Objective - Vital Signs Vital signs: Vital Signs Temp 97.4 F L 03/01/18 06:36 Pulse 77 03/01/18 06:36 Resp 20 03/01/18 06:36 BP 137/70 03/01/18 06:36 Pulse Ox 95 02/24/18 06:25 - Labs CBC & Chem 7: 02/22/18 10:49 02/24/18 08:58 Assessment and Plan Assessment: HPI: Patient is a 32-year-old male presenting for psychiatric admission.. Patient was seen by a behavior clinician and police did pick him up and brought him here to emergency room for a psychiatric evaluation. Patient denies any suicidal, homicidal thoughts or plans. Denies any visual or auditory hallucinations. Patient denies any other physical complaints. Patient denies any recent fever, chills, shortness of breath, chest pain, back pain, abdominal pain, headaches or visual changes, or any other complaints. - Related Data Home Medications Medication Instructions Recorded Confirmed No Known Home Medications 02/21/18 02/21/18 Allergies Allergy/AdvReac Type Severity Reaction Status Date / Time No Known Allergies Allergy Verified 02/21/18 15:25 Past Medical History Past Medical History: No Reported History History of Any Multi-Drug Resistant Organisms: None Reported Past Surgical History: No Surgical Hx Reported Past Psychological History: No Psychological Hx Reported Smoking Status: Current every day smoker Past Alcohol Use History: Occasional Past Drug Use History: Cocaine, Opiates Musculoskeletal Examination - Abnormal/Involuntary Movements: [none] Strength: [greater than antigravity (greater than/equal to 3/5) in all extremities:] Muscle Tone: [no impairment Gait: [grossly normal Station: [grossly normal Mental Status Examination - this 32-year-old single male was brought in by police because of wanting to buy a gun and making threats to his numerous people and multiple complaints. He was told that he cannot return to where he is doing his GED due to no trespassing because he has been belligerent angry irritable and agitated towards people. He bought a high school diploma online and was confronted when he tried to go to college that he never finishes his high school diploma. Worries taking his GED he has been disruptive and argumentative. General Appearance: [bizarre, appears stated age Speech/Language: [spontaneous, rapid, rambled, expressive, loud, does confabulate and has poor understanding of life and how to succeed] Attitude/Behavior: [guarded, irritable Mood: [euphoric, anxious, irritable, angry, fearful] Affect: [labile Orientation: [time, person, place situation] Thought Content: [ delusions of grandeur Risk Factors: [No suicidal (ideations, plan), he has Homicidal (ideations, plan) , other] Perception: [wnl Thought Processes: [ concrete, circumstantial, tangential Concentration/Attention Span: [impaired] [Per observation and interview with the patient] Recent Memory: [impaired] Remote Memory: [wnl] [past events, as related history] Intelligence: [below average] [based on history, based on vocabulary, syntax, grammar, and content] Judgement: [ poor] [per patient's behavior/history of present illness] Insight: [poor] [understanding severity of illness/history of present illness] Admitting Diagnosis: [Bipolar affective disorder acute psychosis] Patient Strengths - Steady employment/financial stability: [x] Housing stability: [x] Patient Limitations: [medication, non-compliance, pathological/unsupported environment, intellectual impairment, legal issues, lack of social supports Initial Plan of Care: [Hamilton is to be admitted involuntary after a petition and first clinical CERT were accomplished and in the chart. I filled out this second clinical CERT today due to his bizarre and delusional thinking with grandiose thoughts and loose associations. He'll be placed on 15 minute watch and usual protocol for the unit. He'll be evaluated by medicine psychiatry nursing social work and recreational therapy and disciplinary team Sunday through Sunday for treatment and disposition. There may be legal ramifications well and charges from a college and the [employer] but will further evaluate. He has since deferred for treatment and was discovered that he was sent to [facility] February 2017 with same symptoms and was on Invega 234 mg IM If he agrees to an deferral I discussed with him in detail that he still court ordered and he has to take the medications. He thought I could just writing scripts and he could leave. I told him that was not an option he has to stay here until he is told he can be discharged. He appeared to be okay with that but judging from previous episodes of him, he will need the probate court order for continued treatment for her as I think he is at risk if he is not on medications.] Estimated Length of Stay: [3 days] Sunday discharge 03/04/2018 Initial Discharge Plan: [home, [facility], referred to therapist Prognosis: [ fair] Justification for Inpatient Hospitalization - [Hallucinations, delusions, agitation, anxiety, depression resulting in significant loss of functioning.] [Dangerous to self, others, or property with need for controlled environment.] [Emotional or behavioral conditions and complications requiring 24 hour medical and nursing care.] [Need for special drug therapy, or other therapeutic program requiring continuous hospitalization.] [Failure of social or occupational functioning.] [Inability to meet basic life and health needs.] [Legally mandated admission.] (1) Bipolar 1 disorder Current Visit: Yes Status: Acute Priority: High Code(s): F31.9 - BIPOLAR DISORDER, UNSPECIFIED SNOMED Code(s): 552599731 (2) Delusions Current Visit: Yes Status: Acute Priority: High Code(s): F22 - DELUSIONAL DISORDERS SNOMED Code(s): 8310594 (3) Psychosis Current Visit: Yes Status: Acute Priority: High Code(s): F29 - UNSP PSYCHOSIS NOT DUE TO A SUBSTANCE OR KNOWN PHYSIOL COND SNOMED Code(s): 45325097 Plan: He did present better today and was able to calmly without pressured speech discuss about titration of this medicine. We discussed about the deferral that he needs His medications and he will have an injection on Sunday and his medications accordingly as outlined below. He did deferral with a court- appointed assistant attorney general.Had deferred and now taking lamictal 200 mg po qhs; invega 12 mg po qhs Sunday plan to use invega 234 mg IM. Time with Patient: Less than 30
[2018-03-01] MEDS: lamoTRIgine 100 MG TAB PO SCH (22:12)
[2018-03-01] MEDS: PALIPERIDONE 6 MG TAB.ER.24 PO SCH (22:13)
[2018-03-02] MEDS: LORazepam 1 MG TAB PO PRN ×3 (04:00→21:03)
[2018-03-02] MEDS: NICOTINE 14MG/24HR PATCH TRANSDERM SCH (08:05)
--- NOTE | 2018-03-02 10:35 | P.PN ---
Progress Note - Text Interval history: The patient is found in his room he follows me to an interview room. He indicates his mood is fine. He reports sleeping last night appetite is stable. He is selectively attending groups. We reviewed his psychotropic medication. He has no questions. It appears he will be receiving an invega systemic injection on Sunday. He anticipates being discharged soon. Mental status exam: The patient is alert he seated calmly in his chair he is dressed in hospital gown. Eye contact is appropriate. His speech is fluent spontaneous he is verbose he is directable. He will speak at length if allowed. He demonstrates circumstantial thinking sometimes tangential thinking no flight of ideas. Affect is constricted he demonstrates no verbal or physical aggressiveness. He denies having any suicidal or homicidal ideation intent or plan. He is endorsing no auditory or visual hallucinations he endorses no specific delusions. Plan: The patient will continue on his current psychotropic medication we will monitor him for safety. Vital signs reviewed. He is encouraged to continue participating in the milieu.
[2018-03-02] MEDS: PALIPERIDONE 6 MG TAB.ER.24 PO SCH (20:24)
[2018-03-02] MEDS: lamoTRIgine 100 MG TAB PO SCH (20:24)
[2018-03-03] MEDS: LORazepam 1 MG TAB PO PRN ×2 (04:08→15:51)
[2018-03-03 04:13] VITALS: BP 118/88; PULSE 80; RESP 14; TEMP 97.8
[2018-03-03] MEDS: NICOTINE 14MG/24HR PATCH TRANSDERM SCH (08:02)
--- NOTE | 2018-03-03 15:51 | P.PN ---
Progress Note - Text Interval history: The patient is found in his room he follows me to an interview room. He states he's been sticking to the plan. He is hoping to be discharged tomorrow. He anticipates getting the invega sustenna injection tomorrow. At length he discusses his concerns about completing his high school diploma. He states he's had issues with the principal there but is hoping to be able to go back and finish is 4 credits. He is hoping [facility] will able to assist with some sort of program to complete his high school diploma. He states he's been going to groups. Mental status exam: The patient is alert he seated calmly in his chair eye contact is appropriate speech is fluent he is verbose he's not pressured. He is redirectable. He reports no suicidal or homicidal ideation intent or plan he endorses no auditory or visual hallucinations. He conveys feelings of suspiciousness and possibly persecution which may be part of his baseline. Insight and judgment limited but improved during the course of his admission. He demonstrates no involuntary repetitive movements. He demonstrates no verbal or physical aggressiveness. He is oriented to person place and date. Affect is constricted. Plan: The patient will continue on his current psychotropic medications. We will monitor him for safety and encourage full participation in the milieu. Vital signs reviewed.
[2018-03-03] MEDS: PALIPERIDONE 6 MG TAB.ER.24 PO SCH (21:08)
[2018-03-03] MEDS: lamoTRIgine 100 MG TAB PO SCH (21:08)
[2018-03-04] MEDS: NICOTINE 14MG/24HR PATCH TRANSDERM SCH (08:13)
--- NOTE | 2018-03-04 11:29 | P.DS ---
Providers Date of admission: 02/21/18 17:12 Expected date of discharge: 03/04/18 Attending physician: Jefry Manning DO Consults: 02/21/18 17:49 Consult Physician Routine Consulting Provider: Nigel Verdugo Consult Reason/Comments: H & P and medical care Do you want consulting provider notified?: Yes Primary care physician: Stated None - Discharge Diagnosis(es) (1) Bipolar 1 disorder HPI: Patient is a 32-year-old male presenting for psychiatric admission.. Patient was seen by a clinical genetics laboratory chief and police did pick him up and brought him here to emergency room for a psychiatric evaluation. Patient denies any suicidal, homicidal thoughts or plans. Denies any visual or auditory hallucinations. Patient denies any other physical complaints. Patient denies any recent fever, chills, shortness of breath, chest pain, back pain, abdominal pain, headaches or visual changes, or any other complaints. - Related Data Home Medications Medication Instructions Recorded Confirmed No Known Home Medications 02/21/18 02/21/18 Allergies Allergy/AdvReac Type Severity Reaction Status Date / Time No Known Allergies Allergy Verified 02/21/18 15:25 Past Medical History Past Medical History: No Reported History History of Any Multi-Drug Resistant Organisms: None Reported Past Surgical History: No Surgical Hx Reported Past Psychological History: No Psychological Hx Reported Smoking Status: Current every day smoker Past Alcohol Use History: Occasional Past Drug Use History: Cocaine, Opiates Current Visit: Yes Status: Acute Priority: High (2) Delusions Current Visit: Yes Status: Acute Priority: High (3) Psychosis Current Visit: Yes Status: Acute Priority: High Hospital Course: Plan of Care: Jonatan was admitted involuntary after a petition and first clinical CERT were accomplished and in the chart. I filled out this second clinical CERT today due to his bizarre and delusional thinking with grandiose thoughts and loose associations. He'll be placed on 15 minute watch and usual protocol for the unit. He has when necessary's available to him but will not medicate until he goes to court. He'll be evaluated by medicine psychiatry nursing social work and recreational therapy and disciplinary team Sunday through Sunday for treatment and disposition. There may be legal ramifications well and charges from a college and the [employer] but will further evaluate. He was started on Lamictal and titrated from 25 mg to 200 mg final dose for mood stabilization. He was also is initiated on Invega at 3 mg and titrated to 12 mg and then converted to injection of 234 mg Invega IM and his next dose should be on 04/02/2018. He gradually adapted to [place] milieu therapeutic environment and was able take medications although there is many arguments about him wanting her being in the psychiatric unit. He did sign a deferral and understands that he cannot miss any appointments or stopped taking any of his medications. He has to follow the mental health and with the psychiatrist. Mental status examination at the time of discharge: The patient presents alert, pleasant, and cooperative. There calmly seated without any agitated behavior. He reports that [his] mood is good. Affect is congruent and euthymic. [He] deny having any suicidal or homicidal ideation intent or plan. [He] denies any auditory or visual hallucinations. There is no evidence of any delusional thought content. [His] thought process is linear and goal-directed. [His] speech is fluent and nonpressured. [His] memory and concentration is grossly intact for the purposes of this session. His medications are as follows: ]Nicotine 14Mg/24Hr Patch [Habitrol] 1 patch TRANSDERM DAILY for substance abuse nicotine addiction Paliperidone IM [Invega Sustenna] 234 mg IM ONCE 28 Days for antipsychotic Paliperidone [Invega] 6 mg PO 2100 30 Days daily antipsychotic treatment lamoTRIgine [LaMICtal] 200 mg PO 2100 mood stabilizer Patient Condition at Discharge: Stable Plan - Discharge Summary New Discharge Prescriptions: New lamoTRIgine [LaMICtal] 200 mg PO 2099 30 Days #60 tab Nicotine 14Mg/24Hr Patch [Habitrol] 1 patch TRANSDERM DAILY 30 Days #30 patch Paliperidone [Invega] 6 mg PO 2100 30 Days #30 tab.er.[email or web address] Paliperidone IM [Invega Sustenna] 234 mg IM ONCE 28 Days #1 syringe Discharge Medication List Nicotine 14Mg/24Hr Patch [Habitrol] 1 patch TRANSDERM DAILY 30 Days #30 patch [Rx] Paliperidone IM [Invega Sustenna] 234 mg IM ONCE 28 Days #1 syringe 03/04/18 [Rx ] Paliperidone [Invega] 6 mg PO 2100 30 Days #30 tab.er.[email or web address] 03/04/18 [Rx] lamoTRIgine [LaMICtal] 200 mg PO 2100 30 Days #60 tab 03/04/18 [Rx] Follow up Appointment(s)/Referral(s): None,Stated [Primary Care Provider] - 1-2 days Patient Instructions/Handouts: Bipolar Disorder (DC), Conduct Disorder (DC), Paranoid Personality Disorder (DC), Psychotic Disorder (DC) Activity/Diet/Wound Care/Special Instructions: activity and diet as tolerated. no guns or weapons in the home. no alcohol or street drugs, not ordered by your physician. take all medications as prescribed. attend all after care appointments as scheduled. return to the nearest ER is symptoms worsen. Discharge Disposition: HOME SELF-CARE
[2018-03-04] MEDS: LORazepam 1 MG TAB PO PRN (11:38)
[2018-03-04] MEDS ORDERED: PALIPERIDONE IM 234 MG/1.5 ML SYG IM ONE (12:00)
[2018-03-04] MEDS ORDERED: PALIPERIDONE 6 MG TAB.ER.24 PO SCH (21:00)
== END 2018-03-04 13:50 | disposition home or self-care (01) | DRG 885 ==
LOC: EC 14:32 → 3MHU 17:12
PROVIDERS: ADMIT Psychiatry & Neurology Psychiatry; ATTEND Psychiatry & Neurology Psychiatry
DX: F31.9 Bipolar disorder, unspecified (principal); Z79.899 Other long term (current) drug therapy; Z71.6 Tobacco abuse counseling; F17.210 Nicotine dependence, cigarettes, uncomplicated; T43.96XA Underdosing of unspecified psychotropic drug, initial encounter; Z91.128 Patient's intentional underdosing of medication regimen for other reason; Z65.3 Problems related to other legal circumstances; F11.11 Opioid abuse, in remission; F14.11 Cocaine abuse, in remission; F22 Delusional disorders
CPT/HCPCS: 80053; 80061; 80306; 81003; 82075; 82248; 83036; 84443; 85025; 93005; 99285

== ENCOUNTER 2018-11-12 12:10 | Emergency (ER) | payer MEDICARE, OTHER ==
[2018-11-12 12:24] VITALS: RESP 18; TEMP 98.8
--- NOTE | 2018-11-12 12:27 | ED ---
Back Pain HPI - General Chief Complaint: Back Pain/Injury Stated Complaint: Back injury Time Seen by Provider: 11/12/18 12:25 Source: patient Limitations: no limitations - History of Present Illness Initial Comments: 33-year-old male presenting for low back pain. Patient states he was carrying a large stretcher to the trash yesterday evening when he felt a pop in his back. Patient states it feels like a muscle strain. Patient sates overtime move it spasms. Patient denies loss of bowel bladder control urinary retention. He denies any numbness tingling or loss sensation lower extremities. Patient states he feels "like his legs could run a marathon". Patient denies any radiation down the legs. Patient denies fever chills night sweats he denies IV drug use or history of cancer. Patient denies falling on his back or direct trauma. Remaining review of system negative. Upon arrival patient appears uncomfortable but no signs of distress, patient ambulatory. - Related Data Home Medications Medication Instructions Recorded Confirmed Divalproex ER [Depakote ER] 1,000 mg PO HS 11/12/18 11/12/18 Paliperidone IM [Invega Sustenna] 234 mg IM Q28D 11/12/18 11/12/18 Previous Rx's Medication Instructions Recorded Cyclobenzaprine [Flexeril] 10 mg PO TID PRN 7 Days #21 tab 11/12/18 Allergies Allergy/AdvReac Type Severity Reaction Status Date / Time No Known Allergies Allergy Verified 11/12/18 12:24 Review of Systems ROS Statement: Those systems with pertinent positive or pertinent negative responses have been documented in the HPI. ROS Other: All systems not noted in ROS Statement are negative. Past Medical History Past Medical History: No Reported History History of Any Multi-Drug Resistant Organisms: None Reported Past Surgical History: No Surgical Hx Reported Past Psychological History: Bipolar Smoking Status: Current every day smoker Past Alcohol Use History: Occasional Past Drug Use History: Cocaine, Opiates General Exam - General Exam Comments Initial Comments: General: The patient is awake and alert, in no distress, and does not appear acutely ill. Eye: Pupils are equal, round and reactive to light, extra-ocular movements are intact. No nystagmus. There is normal conjunctiva bilaterally. No signs of icterus. Ears, nose, mouth and throat: There are moist mucous membranes and no oral lesions. Neck: The neck is supple, there is no tenderness or JVD. Cardiovascular: There is a regular rate and rhythm. No murmur, rub or gallop is appreciated. Respiratory: Lungs are clear to auscultation, respirations are non-labored, breath sounds are equal. No wheezes, stridor, rales, or rhonchi. Musculoskeletal: Upon inspection of the cervical thoracic and lumbar spine no acute abdomen abnormalities masses redness noted. Patient is paravertebral tenderness of the lower lumbar spine left-sided greater than right. Minimal midline tenderness. Range of motion of the lower extremities increases pain in the back. Patient states it induces spasm. Strength 5 out 5 of the lower extremities equal comparison bilaterally. Sensation intact including the saddle region. Rectal exam revealed normal tone. DP pulses equal bilaterally 2+. Patient is able to ambulate without difficulty. No mild clonus or fasciculations. +2 out of 5 DTR patellar. Neurological: A&O x 3. CN II-XII intact, There are no obvious motor or sensory deficits. Coordination appears grossly intact. Speech is normal. Skin: Skin is warm and dry and no rashes or lesions are noted. Psychiatric: Cooperative, appropriate mood & affect, normal judgment. Limitations: no limitations Course Vital Signs 11/12/18 11/12/18 12:22 14:21 Temperature 98.8 F Pulse Rate 91 76 Respiratory 18 18 Rate Blood Pressure 118/77 147/82 O2 Sat by Pulse 98 99 Oximetry Medical Decision Making - Medical Decision Making 33-year-old male presented for back pain after lifting heavy object. Patient has minimal midline tenderness. Mostly paravertebral. Rectal exam normal tone. No history findings consistent with cauda equina. Patient is full strength to lower extremities with sensation in the saddle region. Patient appears well patient was given Valium. Patient states this helped improve symptoms. Patient was ambulated leg strongly emphasized that difficulty. No myoclonus or fasciculations were noted on examination. Patient states he is referred for discharge. Discussed the case I time provided Dr. Marroquin at this time feel patient stay for discharge with outpatient primary care follow-up. Return parameters were discussed the patient is discharged. While sure decision-making was used today, patient was agreeable foregoing imaging studies given there is no history of trauma. Disposition Clinical Impression: Low back strain Disposition: HOME SELF-CARE Condition: Good Instructions (If sedation given, give patient instructions): Acute Low Back Pain (ED) Additional Instructions: Please use medication as discussed. Please follow-up with family doctor in the next 2 days. Please return to emergency room if the symptoms increase or worsen or for any other concerns. Prescriptions: Cyclobenzaprine [Flexeril] 10 mg PO TID PRN 7 Days #21 tab PRN Reason: Muscle Spasm Is patient prescribed a controlled substance at d/c from ED?: No Referrals: Coreen Cotto DO [Primary Care Provider] - 1-2 days Time of Disposition: 14:13
[2018-11-12] MEDS ORDERED: DIAZEPAM 5 MG TAB PO STA (13:08)
[2018-11-12] MEDS ORDERED: KETOROLAC 60 MG/2 ML VIAL IM STA (13:08)
[2018-11-12 14:23] VITALS: BP 147/82; PULSE 76
== END 2018-11-12 14:19 | disposition home or self-care (01) ==
LOC: EC 12:10
DX: S39.012A Strain of muscle, fascia and tendon of lower back, initial encounter (principal); F31.9 Bipolar disorder, unspecified; F17.200 Nicotine dependence, unspecified, uncomplicated; Z79.899 Other long term (current) drug therapy; X50.0XXA Overexertion from strenuous movement or load, initial encounter; Y93.89 Activity, other specified
CPT/HCPCS: 99283; 96372; J1885

== ENCOUNTER 2021-07-04 10:09 | Emergency (ER) | payer MEDICARE, OTHER ==
[2021-07-04 10:21] VITALS: BP 169/120; PULSE 95; RESP 18; TEMP 98
--- NOTE | 2021-07-04 10:52 | ED ---
Extremity Problem HPI - General Chief complaint: Extremity Problem,Nontraumatic Stated complaint: bilat foot pain Time Seen by Provider: 07/04/21 10:34 Source: patient, RN notes reviewed Mode of arrival: ambulatory Limitations: no limitations - History of Present Illness Initial comments: Patient is a 36-year-old male presenting to the emergency Department with complaints of bilateral feet pain has been increasing over the past 4 months. Patient denies any specific injuries or events. He states he is on his feet at work a lot and feels like it increased throughout the day. He denies any previous surgeries or fractures to his feet or ankles. He denies any abnormal swelling. He has no further complaints. - Related Data Home Medications Medication Instructions Recorded Confirmed Divalproex ER [Depakote ER] 1,000 mg PO HS 11/12/18 11/12/18 Paliperidone IM [Invega Sustenna] 234 mg IM Q28D 11/12/18 11/12/18 Previous Rx's Medication Instructions Recorded Cyclobenzaprine [Flexeril] 10 mg PO TID PRN 7 Days #21 tab 11/12/18 Allergies Allergy/AdvReac Type Severity Reaction Status Date / Time No Known Allergies Allergy Verified 07/04/21 10:19 Review of Systems ROS Statement: Those systems with pertinent positive or pertinent negative responses have been documented in the HPI. ROS Other: All systems not noted in ROS Statement are negative. Past Medical History Past Medical History: No Reported History History of Any Multi-Drug Resistant Organisms: None Reported Past Surgical History: No Surgical Hx Reported Past Psychological History: Bipolar Smoking Status: Current every day smoker Past Alcohol Use History: Occasional Past Drug Use History: Cocaine, Opiates General Exam - General Exam Comments Initial Comments: GENERAL: Patient is well-developed and well-nourished. Patient is nontoxic and in no acute distress. HEAD: Atraumatic, normocephalic. EYES: Pupils equal round and reactive to light, extraocular movements intact, sclera anicteric, conjunctiva are normal. Eyelids were unremarkable. LUNGS: Unlabored respirations. Breath sounds clear to auscultation bilaterally and equal. No wheezes rales or rhonchi. HEART: Regular rate and rhythm without murmurs, rubs or gallops. MUSCULOSKELETAL: Patient has minimal pain to palpation of the left lateral foot, also the right lateral foot. There is no significant swelling, neurovascular intact. There is no erythema or signs of infection. NEUROLOGICAL: Patient is alert and oriented x 3. Motor and sensory are also intact. Normal speech, normal gait. PSYCH: Normal mood, normal affect. SKIN: Warm, Dry, normal turgor, no rashes or lesions noted. Limitations: no limitations Course Vital Signs 07/04/21 10:19 Temperature 98 F Pulse Rate 95 Respiratory 18 Rate Blood Pressure 169/120 O2 Sat by Pulse 98 Oximetry Medical Decision Making - Medical Decision Making Patient is a 36-year-old male here with bilateral feet pain increasing over the past 4 months. He does stand a lot at work. No specific injury events. X-rays reveal no acute fractures dislocations. I discussed with patient to try ibuprofen before work, icing afterwards. Also recommended different shoes. He is agreeable to this. He stable for discharge. Disposition Clinical Impression: Bilateral foot pain Disposition: HOME SELF-CARE Condition: Stable Instructions (If sedation given, give patient instructions): Arthralgia (ED) Additional Instructions: Please return to the Emergency Department if symptoms worsen or any other concerns. Recommend Tylenol or ibuprofen before work. Should ice his feet after work. If symptoms persist, follow up with orthopedics. Is patient prescribed a controlled substance at d/c from ED?: No Referrals: Coreen Cotto DO [Primary Care Provider] - 1-2 days Time of Disposition: 11:24
--- NOTE | 2021-07-04 11:15 | XR ---
EXAMINATION TYPE: XR foot limited bilateral DATE OF EXAM: 07/04/2021 COMPARISON: NONE HISTORY: Pain TECHNIQUE: Three views are submitted. FINDINGS: The osseous structures are intact. There is no acute fracture or dislocation. Mild narrowing the j oint bilaterally. Tiny plantar calcaneal spurs. IMPRESSION: 1. No acute fracture or dislocation. If symptoms persist, follow-up exam in 7 to 10 days could be ob tained. There are 2 tiny plantar calcaneal spurs.
== END 2021-07-04 11:43 | disposition home or self-care (01) ==
LOC: EC 10:09
DX: M79.672 Pain in left foot (principal); M79.671 Pain in right foot; F31.9 Bipolar disorder, unspecified; F17.200 Nicotine dependence, unspecified, uncomplicated; F14.90 Cocaine use, unspecified, uncomplicated; F11.90 Opioid use, unspecified, uncomplicated; Z79.899 Other long term (current) drug therapy
CPT/HCPCS: 99283